=== PATIENT | male | born 1995 | race Caucasian/White ===

== ENCOUNTER 2016-08-21 17:01 | Emergency (ER) | payer SELFPAY ==
[~2016-08-21] VITALS: Ht 177.8 cm; Wt 68.0 kg
[~2016-08-21 17:01] MED LIST: ALBU2TAB4 PO; ZIT200/5 PO
[2016-08-21 17:24] VITALS: BP 134/58; PULSE 96; RESP 18; TEMP 97.8; O2SAT 98
--- NOTE | 2016-08-21 19:50 | NUR ---
Pt placed in bed 1 and gowned up for evaluation
--- NOTE | 2016-08-21 20:05 | NUR ---
Pt presents to ED with c/o LUQ abdominal pain 12/16, started after he ate in the afternoon, denies N/V. Skin intact, bowel sound x4. A&ox4, denies SOB or chestpain. Will continue to monitor
--- NOTE | 2016-08-21 20:21 | NUR ---
MD Damon at bedside examining pt
[2016-08-21 20:55] VITALS: BP 126/67; PULSE 92; RESP 18; TEMP 97.8; O2SAT 99
--- NOTE | 2016-08-21 20:55 | NUR ---
Patient given written and verbal discharge instructions and verbalizes understanding. ER MD Damon discussed with patient the results and treatment provided. Patient in stable condition. ID arm band removed. Rx of motrin given. Patient educated on pain management and to follow up with PMD. Pain Scale 0/10 Opportunity for questions provided and answered.
== END 2016-08-21 20:55 | disposition home or self-care (01) ==
LOC: SED 17:01
DX: R07.89 Other chest pain (principal)
CPT/HCPCS: 99282